=== PATIENT | female | born 1985 | race Hispanic/Latino ===

== ENCOUNTER 2018-05-19 08:51 | Outpatient (CLI) | payer BC ==
--- NOTE | 2018-05-19 10:26 | ULT ---
PELVIC ULTRASOUND: HISTORY: Heavy periods. COMPARISON: None. TECHNIQUE: Transabdominal and endovaginal imaging of the uterus is performed. The ovaries are interrogated with barcenas scale, color flow, Doppler imaging, and spectral waveform analysis. FINDINGS: Retroverted uterus measures 4.1 x 4.0 x 6.4 cm. Visualized endometrium has a diameter of 0.5 cm. Th ere are no myometrial masses. Multiple follicles involving both ovaries. The right ovary measures 2.9 x 2.1 x 3.2 cm. The left ov rachelle measures 2.0 x 2.1 x 2.8 cm. There is no free fluid. OVARIAN DOPPLER: Vascular flow to both ovaries. IMPRESSION: 1. Retroverted uterus. No evidence of myometrial masses. Unremarkable endometrium. 2. Normal echotexture to both ovaries. Multiple follicles are noted bilaterally. POS: [facility]
== END 2018-05-19 08:52 | disposition home or self-care (01) ==
LOC: BICULT 08:51
PROVIDERS: ATTEND Advanced Practice Midwife
DX: N92.1 Excessive and frequent menstruation with irregular cycle (principal); N85.4 Malposition of uterus
CPT/HCPCS: 76856